=== PATIENT | male | born 1990 | race Caucasian/White ===

== ENCOUNTER 2023-10-31 18:02 | Emergency (ER) | payer BC, SELFPAY ==
--- NOTE | 2023-10-31 18:02 | ECG_ITS ---
APPROVED REPORT Exam: Resting ECG HR:82 bpm ECG Measurements Heart Rate 82 AXES MS 108 P 74 QRSd 106 QRS 80 QT 350 T 60 QTc 389 Conclusion SINUS RHYTHM WITH SHORT MS INTERVAL BORDERLINE ECG UNCONFIRMED REPORT Electronically signed by : Beck Huff MD 10/31/2023 22:35:53
[2023-10-31 18:03] VITALS: BP 162/107; PULSE 89; RESP 18; TEMP 36.8; O2SAT 100; BMI 17.8
--- NOTE | 2023-10-31 18:04 | ED_ITS ---
Discharge Plan Disposition Patient Disposition: Home, Self-Care Condition: Good Referrals Follow up/Referrals: Annmarie Fernandez [Primary Care Provider] - See instructions Clinical Impressions Clinical Impression: Atypical chest pain Discharge ED Provider: Carlos Messer HPI <GIANFRANCO Bonilla - Last Filed: 10/31/23 22:23> General Chief Complaint: Chest Pain Stated Complaint: chest pain Time Seen by Provider: 10/31/23 18:04 History of Present Illness HPI narrative: Patient presents with a diffuse constellation of symptoms including left-sided chest pain that he is described as flutter , that radiates to his left arm that he describes as numbness, headache that is associated postprandially, but no abdominal pain shortness of breath fever chills hemoptysis hematochezia melena nausea vomiting diarrhea. Patient states the symptoms have been going on for over a year and has been seen at multiple healthcare facilities including most recently [facility] and [facility]. Patient does not have any new symptoms in the last 24 to 48 hours however he has not r eceived satisfactory explanation for his constellation of symptoms since he presented to the emergency department for evaluation Related Data Allergies Allergy/AdvReac Type Severity Reaction Status Date / Time No Known Allergies Allergy Verified 10/31/23 18:16 [facility] <GIANFRANCO Bonilla - Last Filed: 10/31/23 22:23> [facility] Disclaimer: The information contained in this section may have been updated after the price nt was seen, as this information can be updated by other users. Social History (Updated 10/31/23 @ 22:23 by GIANFRANCO Bonilla) Smoking Status: Never smoker alcohol intake: never current occupational status: employed Travel in the last 8 weeks: None <GIANFRANCO Bonilla - Last Filed: 10/31/23 22:23> ROS Obtained: Yes Systems reviewed as appropriate & no additional complaints except as documented Physical Exam <GIANFRANCO Bonilla - Last Filed: 10/31/23 22:23> Narrative Physical exam: Patient is a well-nourished well-developed 33-year-old gentleman who otherwise is in no acute distress General General appearance: alert and in no apparent distress Head Head exam: atraumatic and normal inspection Eye Eye exam: Present normal appearance, PERRL and EOMI ENT ENT exam: Present normal exam, normal oropharynx and mucous membranes moist Neck Neck exam: Present normal inspection, full ROM and trachea midline; Absent lymphadenopathy Chest Chest inspection: Present normal inspection and symmetric chest wall rise Respiratory Respiratory exam: Present normal lung sounds bilaterally; Absent accessory muscle use Cardiovascular Cardiovascular exam: Present regular rate, normal rhythm, normal heart sounds, +S1 and +S2 Abdominal Exam Abdominal exam: Present soft and normal bowel sounds; Absent tenderness, guarding or rebound Extremities Exam Extremities exam: Present normal inspection and full ROM Back Exam Back exam: Present normal inspection and full ROM; Absent tenderness Neurological Exam Neurological exam: Present alert, oriented X3 and CN II-XII intact Psychiatric Psychiatric exam: Present normal affect, normal mood and anxious Skin Skin exam: Present warm, dry and normal color Lymphatic Lymphatic Findings: no adenopathy HEART Score <GIANFRANCO Bonilla - Last Filed: 10/31/23 22:23> HEART Score HEART Score assessment performed?: Yes History (anamnesis): Slightly suspicious ECG: Normal Age: <45 years Risk factors: No known risk factors Troponin: </= normal limit HEART Score: 0 <Carlos Messer MD - Last Filed: 10/31/23 23:53> HEART Score HEART Score: 0 Critical Care <GIANFRANCO Bonilla - Last Filed: 10/31/23 22:23> Critical Care Time Critical Care Time: No Medical Decision Making <GIANFRANCO Bonilla - Last Filed: 10/31/23 22:23> Alex Inquiry Pt receiving controlled substance: No Alex was queried for this patient: No Vital Signs Vital Signs: 10/31/23 18:03 10/31/23 18:30 10/31/23 19:00 Temperature 98.2 F Temperature Source Oral Pulse Rate 85 96 H Pulse Rate [Radial] 89 Respiratory Rate 18 18 Blood Pressure 136/93 H 125/89 Blood Pressure [Right Arm] 162/107 H Blood Pressure Mean 107 Blood Pressure Mean [Right Arm] 125 Blood Pressure Source Blood Pressure Source [Right Arm] Automatic Cuff Blood Pressure Position Blood Pressure Position [Right Arm] Sitting 02 Sat by Pulse Oximetry 100 100 100 Oxygen Delivery Method Room Air Room Air 10/31/23 20:03 Temperature 98.7 F Temperature Source Oral Pulse Rate 89 Pulse Rate [Radial] Respiratory Rate 18 Blood Pressure 129/98 H Blood Pressure [Right Arm] Blood Pressure Mean Blood Pressure Mean [Right Arm] Blood Pressure Source Automatic Cuff Blood Pressure Source [Right Arm] Blood Pressure Position Sitting Blood Pressure Position [Right Arm] 02 Sat by Pulse Oximetry Oxygen Delivery Method Room Air Lab Data Lab results reviewed: Yes I reviewed the patient's lab results. Labs: Lab Results 10/31/23 18:08: WBC 5.4, RBC 4.91, Hgb 16.8, Hct 44.0, MCV 89.7, MCH 34.3 H, MCHC 38.2 H, RDW 12.9, Plt Count 139 L, MPV 11.1 H, Neut % (Auto) 53.3, Lymph % (Auto) 34.7, [place] % (Auto) 8.1, Eos % (Auto) 3.0, Baso % (Auto) 0.8, Neut # (Auto) 2.9, Lymph # (Auto) 1.9, [place] # (Auto) 0.4, Eos # (Auto) 0.2, Baso # (Auto) 0.1, Sodium 139, Potassium 4.2, Chloride 102, Carbon Dioxide 28, Anion Gap 13.2, BUN 24 H, Creatinine 1.00, Estimated Creat Clear 79, Estimated GFR 86, Est GFR ( Amer) 104, Glucose 84, Calcium 9.2, Magnesium 2.1, Total Bilirubin 0.6, AST 30, ALT 22, Alkaline Phosphatase 82, Troponin I < 0.01, NT-Pro-B Natriuret Pep 21.9, Total Protein 7.9, Albumin 4.7, Globulin 3.2, Albumin/Globulin Ratio 1.5, TSH 1.94 10/31/23 18:08 10/31/23 18:08 Response Orders (Tests/Meds): ED MEDICATIONS Discontinued Medications Generic Name Dose Route Start Last Admin Trade Name Freq PRN Reason Stop Dose Admin Sodium Chloride 10 ml 10/31/23 18:05 Sodium Chloride 0.9% 10ml Flush Syringe IV 11/30/23 18:04 NEEDED PRN Maintain IV Site ORDERS Category Date Time Status CXR --portable [XR chest portable] Stat Exams 10/31/23 18:38 Completed POCUS Point of Care (ER Only) Stat Exams 10/31/23 18:05 Taken Brain Natriuretic Peptide Stat Lab 10/31/23 18:08 Completed CMP [Comprehensive Metabolic Panel] Stat Lab 10/31/23 18:08 Completed Complete Blood Count Auto Diff Stat Lab 10/31/23 18:08 Completed Magnesium Stat Lab 10/31/23 18:08 Completed Thyroid Stimulating Hormone Stat Lab 10/31/23 18:08 Completed Troponin I Stat Lab 10/31/23 18:08 Completed ECG initial [place] Routine Y 10/31/23 18:02 Completed MDM Narrative Medical Decision Narrative: In summary patient is a 33-year-old male who presents to the emergency department for evaluation of numerous complaints including left-sided chest pain. Patient is hemodynamically stable and afebrile upon arrival.. Physical exam reveals no acute abnormalities but only subjective somatic complaints. Differential diagnosis includes ACS, biliary colic, arrhythmia, migraine, anxiety. Initial workup will be conducted with hematological labs EKG plain film chest x-ray. initial workup reviewed by me and showed nonactionable labs including normal troponin normal EKG with a sinus rhythm with a rate of 80. EKG independently interpreted by me, Gui MANN, and significant for sinus rhythm [address] or T wave changes concerning for ischemia. DE, QRS, QT intervals within normal limits. [place] normal. Upon repeat evaluation I had a long discussion with the patient regarding his constellation of constitutional symptoms that were significantly unrelated patient appears to be hyperfocused and has a significant suspicion for undiagnosed and untreated anxiety disorder. Given this patient is appropriate to discharge home. Patient was given referral to [facility] referral for formal anxiety evaluation as well as instructed to follow-up with PCP for further investigations of his constitutional symptoms. I think patient would benefit from cardiology evaluation and Holter monitor to evaluate for any occult arrhythmias although the patient had none here <Carlos Messer MD - Last Filed: 10/31/23 23:53> Vital Signs Vital Signs: 10/31/23 18:03 10/31/23 18:30 10/31/23 19:00 Temperature 98.2 F Temperature Source Oral Pulse Rate 85 96 H Pulse Rate [Radial] 89 Respiratory Rate 18 18 Blood Pressure 136/93 H 125/89 Blood Pressure [Right Arm] 162/107 H Blood Pressure Mean 107 Blood Pressure Mean [Right Arm] 125 Blood Pressure Source Blood Pressure Source [Right Arm] Automatic Cuff Blood Pressure Position Blood Pressure Position [Right Arm] Sitting 02 Sat by Pulse Oximetry 100 100 100 Oxygen Delivery Method Room Air Room Air 10/31/23 20:03 Temperature 98.7 F Temperature Source Oral Pulse Rate 89 Pulse Rate [Radial] Respiratory Rate 18 Blood Pressure 129/98 H Blood Pressure [Right Arm] Blood Pressure Mean Blood Pressure Mean [Right Arm] Blood Pressure Source Automatic Cuff Blood Pressure Source [Right Arm] Blood Pressure Position Sitting Blood Pressure Position [Right Arm] 02 Sat by Pulse Oximetry Oxygen Delivery Method Room Air Lab Data Labs: Lab Results 10/31/23 18:08: WBC 5.4, RBC 4.91, Hgb 16.8, Hct 44.0, MCV 89.7, MCH 34.3 H, MCHC 38.2 H, RDW 12.9, Plt Count 139 L, MPV 11.1 H, Neut % (Auto) 53.3, Lymph % (Auto) 34.7, [place] % (Auto) 8.1, Eos % (Auto) 3.0, Baso % (Auto) 0.8, Neut # (Auto) 2.9, Lymph # (Auto) 1.9, [place] # (Auto) 0.4, Eos # (Auto) 0.2, Baso # (Auto) 0.1, Sodium 139, Potassium 4.2, Chloride 102, Carbon Dioxide 28, Anion Gap 13.2, BUN 24 H, Creatinine 1.00, Estimated Creat Clear 79, Estimated GFR 86, Est GFR ( Amer) 104, Glucose 84, Calcium 9.2, Magnesium 2.1, Total Bilirubin 0.6, AST 30, ALT 22, Alkaline Phosphatase 82, Troponin I < 0.01, NT-Pro-B Natriuret Pep 21.9, Total Protein 7.9, Albumin 4.7, Globulin 3.2, Albumin/Globulin Ratio 1.5, TSH 1.94 Response Orders (Tests/Meds): ED MEDICATIONS Discontinued Medications Generic Name Dose Route Start Last Admin Trade Name Freq PRN Reason Stop Dose Admin Sodium Chloride 10 ml 10/31/23 18:05 Sodium Chloride 0.9% 10ml Flush Syringe IV 11/30/23 18:04 NEEDED PRN Maintain IV Site ORDERS Category Date Time Status CXR --portable [XR chest portable] Stat Exams 10/31/23 18:38 Completed POCUS Point of Care (ER Only) Stat Exams 10/31/23 18:05 Taken Brain Natriuretic Peptide Stat Lab 10/31/23 18:08 Completed CMP [Comprehensive Metabolic Panel] Stat Lab 10/31/23 18:08 Completed Complete Blood Count Auto Diff Stat Lab 10/31/23 18:08 Completed Magnesium Stat Lab 10/31/23 18:08 Completed Thyroid Stimulating Hormone Stat Lab 10/31/23 18:08 Completed Troponin I Stat Lab 10/31/23 18:08 Completed ECG initial [place] Routine Y 10/31/23 18:02 Completed MDM Narrative Medical Decision Narrative: In summary patient is a 33-year-old male who presents to the emergency department for evaluation of numerous complaints including left-sided chest pain. Patient is hemodynamically stable and afebrile upon arrival.. Physical exam reveals no acute abnormalities but only subjective somatic complaints. Differential diagnosis includes ACS, biliary colic, arrhythmia, migraine, anxiety. Initial workup will be conducted with hematological labs EKG plain film chest x-ray. initial workup reviewed by me and showed nonactionable labs including normal troponin normal EKG with a sinus rhythm with a rate of 80. EKG independently interpreted by me, Gui MANN, and significant for sinus rhythm [address] or T wave changes concerning for ischemia. [place], QRS, QT intervals within normal limits. [place] normal. Upon repeat evaluation I had a long discussion with the patient regarding his constellation of constitutional symptoms that were significantly unrelated patient appears to be hyperfocused and has a significant suspicion for undiagnosed and untreated anxiety disorder. Given this patient is appropriate to discharge home. Patient was given referral to [facility] referral for formal anxiety evaluation as well as instructed to follow-up with PCP for further investigations of his constitutional symptoms. I think patient would benefit from cardiology evaluation and Holter monitor to evaluate for any occult arrhythmias although the patient had none here I was consulted by the IVANA, and we discussed the complexity of the problems being addressed. I approved the treatment and management plan for this patient?s care in the Emergency Department, thus performing a substantive portion of the medical decision making. Carlos Messer MD
[2023-10-31 18:24] LABS: Basophils # 0.1 K/mm3 (0-0.2); Basophils % 0.8 % (0.1-2.0); Chloride 102 mmol/L (98-107); Eosinophils # 0.2 K/mm3 (0.0-0.4); Hemoglobin 16.8 g/dL (14.1-18.0); Lymphocytes # 1.9 K/mm3 (0.7-4.5); Lymphocytes % 34.7 % (10-50); Mean Corpuscular HGB Conc 38.2 g/dL (31.8-35.4); Mean Corpuscular Hemoglobin 34.3 pg (27.0-31.2); Mean Corpuscular Volume 89.7 fl (80-94); Mean Platelet Volume 11.1 fl (7.4-10.4); Monocytes # 0.4 K/mm3 (0.1-1.0); Monocytes % 8.1 % (1.7-9.3); Neutrophils # 2.9 K/mm3 (1.8-7.8); Neutrophils % 53.3 % (37.0-80.0); Platelet Count 139 K/mm3 (142-424); Potassium 4.2 mmoL/L (3.5-5.1); Red Blood Count 4.91 M/mm3 (4.60-6.20); Red Cell Distribution Width 12.9 % (11.5-17.5); Sodium 139 mmol/L (136-145); White Blood Count 5.4 K/mm3 (4.8-10.8)
[2023-10-31 18:26] LABS: Blood Urea Nitrogen 24 mg/dl (9-20); Creatinine Clearance Estimated 79 mL/min (50-200); Estimated Glomerular Filt Rate 86 ml/min (>60); GFR (African American) 104 ML/MIN (>60)
[2023-10-31 18:27] LABS: Alanine Aminotransferase 22 U/L (12-78); Albumin Level 4.7 g/dl (3.5-5.0); Albumin/Globulin Ratio 1.5 (1.1-1.8); Alkaline Phosphatase 82 U/L (38-126); Anion Gap 13.2 mEq/L (5-15); Aspartate Amino Transferase 30 U/L (17-59); Bilirubin,Total 0.6 mg/dl (0.2-1.3); Calcium 9.2 mg/dl (8.4-10.2); Carbon Dioxide 28 mmol/L (22.0-30.0); Globulin 3.2 g/dL (1.3-3.2); Glucose 84 mg/dl (74-100); Total Protein,Serum 7.9 g/dl (6.3-8.2)
[2023-10-31 18:30] VITALS: BP 136/93; PULSE 85; RESP 18; O2SAT 100
[2023-10-31 18:32] LABS: Magnesium 2.1 mg/dl (1.6-2.3)
--- NOTE | 2023-10-31 18:38 | XR_ITS ---
PROCEDURE INFORMATION: Exam: XR Chest Exam date and time: 10/31/2023 6:39 PM Age: 33 years old Clinical indication: Pain; Left-sided; Additional info: Chest pain TECHNIQUE: Imaging protocol: Radiologic exam of the chest. Views: 1 view. COMPARISON: No relevant prior studies available. FINDINGS: Lungs: Left midlung calcified granuloma is present. The lungs appear clear. No focal areas of consolidation. Pleural spaces: No pleural effusions. Negative for pneumothorax. Heart/Mediastinum: Cardiac silhouette and pulmonary vasculature are within range of normal. Calcified left hilar lymph nodes indicate prior granulomatous disease. Bones/joints: There is no evidence of acute fracture. IMPRESSION: Negative for an acute cardiopulmonary abnormality.
[2023-10-31 18:42] LABS: NT Pro Brain Natriuretic Pep. 21.9 pg/mL (0-125)
[2023-10-31 18:55] LABS: Troponin I < 0.01 ng/ml (0.00-0.034)
[2023-10-31 19:00] VITALS: BP 125/89; PULSE 96; O2SAT 100
[2023-10-31 19:03] LABS: Thyroid Stimulating Hormone 1.94 uIU/mL (0.465-4.68)
--- NOTE | 2023-10-31 19:32 | PC.NURSE ---
The mid Level provider in room talking with patient at this time.
[2023-10-31 20:03] VITALS: BP 129/98; PULSE 89; RESP 18; TEMP 37.1; O2SAT 100
== END 2023-10-31 20:05 | disposition home or self-care (01) ==
PROVIDERS: Physician Assistant; Emergency Provider Emergency Medicine; PCP Family Medicine
DX: R07.89 Other chest pain (principal); M79.602 Pain in left arm; R51.9 Headache, unspecified
CPT/HCPCS: 71045; 80053; 83735; 83880; 84443; 84484; 85025; 93005; 99285